=== PATIENT | female | born 1980 | race Caucasian/White ===

== ENCOUNTER 2020-01-23 12:28 | Emergency (ER) | payer BC, OTHER ==
[~2020-01-23] VITALS: Ht 170.2 cm; Wt 47.7 kg
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
--- NOTE | 2020-01-23 12:42 | NUR ---
THIERRY TRUJILLO AT BS NOW.
--- NOTE | 2020-01-23 13:00 | NUR ---
PT'S ANN MENDOZA CALLED. UPDATED HIM ON POC.
[2020-01-23 13:16] LABS: BASOPHILS # (AUTO) 0.02 x10^3/uL (0-0.1); BASOPHILS % (AUTO) 0 % (0-1); EOSINOPHILS # (AUTO) 0.01 x10^3/uL (0-0.4); EOSINOPHILS % (AUTO) 0 % (1-7); LYMPHOCYTES # (AUTO) 1.35 x10^3/uL (1-3.4); LYMPHOCYTES % (AUTO) 23 % (22-44); MD NO; MEAN CORPUSCULAR HEMOGLOBIN 29.8 pg (27.0-34.8); MEAN CORPUSCULAR HGB CONC 32.7 g/dL (32.4-35.8); MEAN CORPUSCULAR VOLUME 91.3 fL (80-100); MEAN PLATELET VOLUME 7.4 fL (7.4-10.4); MONOCYTES % (AUTO) 5 % (2-9); NEUTROPHILS # (AUTO) 4.22 x10^3/uL (1.8-6.8); NEUTROPHILS % (AUTO) 72 % (42-75); PLATELET COUNT 263 x10^3/uL (130-400); RED BLOOD COUNT 4.79 x10^6/uL (3.82-5.3); RED CELL DISTRIBUTION WIDTH 13.4 % (9.6-15.2)
[2020-01-23 13:29] LABS: ALANINE AMINOTRANSFERASE 14 U/L (12-78); ANION GAP 7 mmol/L (5-15); CALCIUM 9.2 mg/dL (8.5-10.1); CHLORIDE 108 mmol/L (98-107); CREATININE 0.96 mg/dL (0.55-1.02)
[2020-01-23] MEDS ORDERED: POTASSIUM CHLORIDE 20 MEQ TAB.ER.PRT ONE (13:32)
[2020-01-23 13:34] LABS: ALKALINE PHOSPHATASE 62 U/L (45-117); BILIRUBIN,TOTAL 0.3 mg/dL (0.2-1.0); TOTAL PROTEIN 7.5 g/dL (6.4-8.2)
[2020-01-23 13:37] LABS: MICROSCOPIC INDICATED
[2020-01-23 13:39] LABS: AMPHETAMINE SCREEN, URINE Negative (Negative); BARBITURATE SCREEN, URINE Negative (Negative); BENZODIAZEPINE SCREEN, URINE Negative (Negative); CANNABINOID SCREEN, URINE Positive (Negative); COCAINE SCREEN, URINE Negative (Negative); CULTURE INDICATED? NO; METHADONE SCREEN, URINE Negative (Negative); OPIATE SCREEN, URINE Negative (Negative)
--- NOTE | 2020-01-23 14:05 | NUR ---
PSYCH MOLDER INFLATED BALL WAS IN TO SPEAK WITH PT, RV'WD POC WITH PT.
--- NOTE | 2020-01-23 15:37 | NUR ---
PT HAS BEEN RESTING QUIETLY IN [facility], AWAKENS EASILY. VSS. RV'WD POC WITH HER, SHE VERBALIZES UNDERSTANDING.
--- NOTE | 2020-01-23 16:23 | NUR ---
UPDATED PT AND PT'S ANN (OVER THE PHONE) ON POC.
--- NOTE | 2020-01-23 17:55 | NUR ---
SNACK AND WATER PROVIDED TO PT. PHONE PROVIDED TO PT SO SHE CAN CALL HER KIDS.
--- NOTE | 2020-01-23 18:43 | NUR ---
PACKET FAXED TO [facility]
--- NOTE | 2020-01-23 19:08 | NUR ---
RV'WD PLAN FOR LIKELY TRANSFER TO [facility] WITH PT. PT ATE SOME DINNER. C/O SOME NAUSEA BUT DECLINES ANY MEDICATION, STATES, "I THINK I JUST NEED TO EAT. I HAVEN'T EATEN MUCH IN THREE DAYS." STATES SHE WILL MEDITATE THEN TRY TO GO TO SLEEP.
--- NOTE | 2020-01-23 22:16 | NUR ---
PT AWAKE, C/O DRY HEAVING. ICE WATER PROVIDED. VSS. PT DECLINES ZOFRAN. NO OTHER NEEDS AT THIS TIME.
--- NOTE | 2020-01-23 23:43 | NUR ---
PT ASLEEP IN [facility] AT THIS TIME; NADN. EQUAL BILATERAL RISE AND FALL OF CHEST OBSERVED FROM DOORWAY. SITTER OUTSIDE OF PT ROOM FOR DIRECT OBSERVATION OF PT.
--- NOTE | 2020-01-24 00:40 | NUR ---
pt asleep in [facility] at this time; nadn. sitter outside of pt room for direct observation of pt. equal bilateral rise and fall of chest noted.
--- NOTE | 2020-01-24 01:51 | NUR ---
PT ASLEEP IN [facility] AT THIS TIME; ERUM. PT HAS SITTER OUTSIDE OF PT ROOM FOR DIRECT OBSERVATION OF PT. EQUAL BILATERAL RISE AND FALL OF CHEST NOTED WHILE PT SLEEPS.
--- NOTE | 2020-01-24 03:16 | NUR ---
pt asleep in [facility] at this time; nadn. pt has sitter outside of pt room for direct observation of pt.equal bilateral rise and fall of pt chest noted.
--- NOTE | 2020-01-24 04:57 | NUR ---
pt asleep in [facility] at this time; nadn. sitter outside of pt room for direct observation of pt. equal bilateral rise and fall of chest noted.
--- NOTE | 2020-01-24 06:30 | NUR ---
pt vss and updated in emr. upon asking pt how she is feeling, she states that she had an episode of emesis and some dry heaving this morning. pt does not want meds at this time but requesting water. pt has sitter outside of room for direct observation at this time. When asked about pt suicidal ideation, pt states "I think its gone away, however, I'm still really sad and know I can't go home yet."
--- NOTE | 2020-01-24 07:40 | NUR ---
MORNING SHIFT REPORT RECEIVED. PT SLEEPING IN BED, NO DISTRESS. SITTER REMAINS AT BEDSIDE, ROOM REMAINS SECURED. MEAL TRAY ORDERED. CONT TO MONITOR.
--- NOTE | 2020-01-24 09:23 | NUR ---
PT RESTING IN BED, NO DISTRESS. SITTER REMAINS AT BEDISDE, ROOM REMAINS SECURED. AWAITING PSYCH TRANSFER. MEAL TRAY GIVEN TO PT. CONT TO MONITOR.
--- NOTE | 2020-01-24 10:15 | NUR ---
PT RESTING IN BED, NO DISTRESS. SITTER REMAINS AT BEDISDE, ROOM REMAINS SECURED. CONT TO MONITOR.
--- NOTE | 2020-01-24 11:15 | NUR ---
PT RESTING IN BED, ALERT AND ORIENTED X4, CALM AND COOPERATIVE. PT'S CALLED, PT STATED IT WAS OK TO GIVE HIM UPDATES ON PLAN OF CARE. PT MEAL TRAY ORDERED. PT'S ROOM REMAINS SECURED, SITTER REMAINS AT BEDSIDE. CONT TO MONITOR.
--- NOTE | 2020-01-24 12:27 | NUR ---
PT MOVED TO HOSPITAL BED. PT GIVEN MEAL TRAY. SITTER REMAINS AT BEDSIDE, ROOM SECURED. PT CALM AND COOPERATIVE. CONT TO MONITOR.
--- NOTE | 2020-01-24 13:03 | NUR ---
TIFFANY JACOB NP AT BEDSIDE FOR PT ASSESSMENT.
--- NOTE | 2020-01-24 13:18 | NUR ---
PT CALLING TO ASK FOR HEALTH INSURANCE INFORMATION. REPORT GIVEN TO YOMI ARELLANO.
--- NOTE | 2020-01-24 13:58 | NUR ---
pt able to get health insurance information from [facility]. this in given to registration. pt phone also removed from pt. explained to pt that all personal belongings are to be removed per psych protocol. pt okay with this. pt cell phone placed in tagged personal belongings bag. pt up to the bathroom steadily on feet. pt called demanding information on accepting facility. pt informed there has been no accepting psych facility at this time. pt furious, stating he will be calling every hour until a facility has accepted pt.
[2020-01-24 14:35] VITALS: BP 116/78
--- NOTE | 2020-01-24 14:40 | NUR ---
PT RESTING IN BED, VITALS DONE. NO STATED NEEDS AT THIS TIME. WILL CONTINUE TO MONITOR.
--- NOTE | 2020-01-24 15:02 | NUR ---
PT RESTING CALMY IN BED. NO STATED NEEDS. WILL CONTINUE TO MONITOR.
[2020-01-24] MEDS ORDERED: LORazepam 2 MG/ML, 1ML ONE (16:10)
--- NOTE | 2020-01-24 16:24 | NUR ---
PT RESTING IN BED AT THIS TIME, NO STATED NEEDS. SITTER AT DOOR.
--- NOTE | 2020-01-24 16:43 | NUR ---
report to Pee rn for behavioral health. PT UPDATED ON PLAN OF CARE
== END 2020-01-24 16:55 | disposition home or self-care (01) ==
LOC: ED 12:57
DX: T14.91XA Suicide attempt, initial encounter (principal); T39.1X1A Poisoning by 4-Aminophenol derivatives, accidental (unintentional), initial encounter; R94.31 Abnormal electrocardiogram [ECG] [EKG]; Y92.9 Unspecified place or not applicable
CPT/HCPCS: 36415; 80053; 80307; 81001; 84703; 85025; 93005; 99285

== ENCOUNTER 2020-01-24 16:18 | Inpatient (IN) | payer BC ==
[~2020-01-24] VITALS: Ht 170.2 cm; Wt 47.6 kg
[2020-01-24] MEDS ORDERED: POLYETHYLENE GLYCOL 17 GM PACKET PO PRN (17:00)
[2020-01-24] MEDS ORDERED: DOCUSATE 100 MG CAPSULE PO PRN (17:00)
[2020-01-24] MEDS ORDERED: ACETAMINOPHEN 325 MG TABLET PO PRN (17:00)
[2020-01-24 17:53] VITALS: BP 120/78
[2020-01-24 17:54] VITALS: BP 120/78
[2020-01-24 19:58] VITALS: BP 123/72
[2020-01-25 08:04] VITALS: BP 102/71
[2020-01-25 08:04] LABS: FREE T4 (FREE THYROXINE) 1.28 ng/dL (0.76-1.46); LDL/HDL RATIO 1.7 (0.5-3.0)
[2020-01-25 12:22] LABS: INTERNATIONAL NORMALIZED RATIO 1.07 (0.93-1.1); PROTHROMBIN TIME 11.3 Seconds (9.6-11.5)
[2020-01-25 12:25] LABS: ALANINE AMINOTRANSFERASE 13 U/L (12-78); ALBUMIN 4.2 g/dL (3.4-5.0); BILIRUBIN, DIRECT 0.2 mg/dL (0.1-0.2)
[2020-01-25 12:27] LABS: ALKALINE PHOSPHATASE 66 U/L (45-117); BILIRUBIN,INDIRECT 0.4 mg/dL (0.0-2.0); BILIRUBIN,TOTAL 0.6 mg/dL (0.2-1.0)
[2020-01-25] MEDS: FLUOXETINE 10 MG CAP PO SCH (15:59)
[2020-01-25 19:15] VITALS: BP 106/68
[2020-01-26 07:15] LABS: BASOPHILS # (AUTO) 0.02 x10^3/uL (0-0.1); BASOPHILS % (AUTO) 0 % (0-1); EOSINOPHILS # (AUTO) 0.02 x10^3/uL (0-0.4); EOSINOPHILS % (AUTO) 0 % (1-7); LYMPHOCYTES # (AUTO) 1.95 x10^3/uL (1-3.4); LYMPHOCYTES % (AUTO) 32 % (22-44); MD NO; MEAN CORPUSCULAR HEMOGLOBIN 29.8 pg (27.0-34.8); MEAN CORPUSCULAR HGB CONC 32.8 g/dL (32.4-35.8); MEAN CORPUSCULAR VOLUME 90.9 fL (80-100); MEAN PLATELET VOLUME 7.8 fL (7.4-10.4); MONOCYTES # (AUTO) 0.37 x10^3/uL (0.2-0.8); MONOCYTES % (AUTO) 6 % (2-9); NEUTROPHILS # (AUTO) 3.68 x10^3/uL (1.8-6.8); NEUTROPHILS % (AUTO) 61 % (42-75); PLATELET COUNT 267 x10^3/uL (130-400); RED BLOOD COUNT 5.68 x10^6/uL (3.82-5.3); RED CELL DISTRIBUTION WIDTH 12.9 % (9.6-15.2)
[2020-01-26 07:19] LABS: ALBUMIN 4.6 g/dL (3.4-5.0); ANION GAP 6 mmol/L (5-15); CALCIUM 9.3 mg/dL (8.5-10.1); CHLORIDE 104 mmol/L (98-107)
[2020-01-26 07:23] LABS: ALANINE AMINOTRANSFERASE 12 U/L (12-78); ALKALINE PHOSPHATASE 71 U/L (45-117); BILIRUBIN,TOTAL 0.7 mg/dL (0.2-1.0); CREATININE 0.93 mg/dL (0.55-1.02); TOTAL PROTEIN 8.8 g/dL (6.4-8.2)
[2020-01-26 07:30] LABS: INTERNATIONAL NORMALIZED RATIO 1.06 (0.93-1.1); PROTHROMBIN TIME 11.2 Seconds (9.6-11.5)
[2020-01-26 07:32] VITALS: BP 121/77
[2020-01-26] MEDS: FLUOXETINE 10 MG CAP PO SCH (08:50)
[2020-01-26 19:33] VITALS: BP 113/73
[2020-01-27 07:00] VITALS: BP 98/66
[2020-01-27] MEDS: FLUOXETINE 10 MG CAP PO SCH (08:47)
[2020-01-27] MEDS ORDERED: FLUO10CA14 PO (12:31)
[2020-01-27] MEDS ORDERED: HYDROXYZINE PAMOATE 25MG CAP PO PRN (14:00)
[2020-01-27] MEDS ORDERED: FLUOXETINE 10 MG CAP PO SCH (17:00)
[2020-01-27 19:59] VITALS: BP 109/70
[2020-01-28 07:39] VITALS: BP 104/71
== END 2020-01-28 13:00 | disposition home or self-care (01) | DRG 885 ==
LOC: 3E 16:58
PROVIDERS: ADMIT Psychiatry & Neurology Psychosomatic Medicine; ATTEND Psychiatry & Neurology Psychosomatic Medicine
DX: F33.2 Major depressive disorder, recurrent severe without psychotic features (principal); K59.00 Constipation, unspecified; F50.9 Eating disorder, unspecified; T39.1X2A Poisoning by 4-Aminophenol derivatives, intentional self-harm, initial encounter; Y92.89 Other specified places as the place of occurrence of the external cause; Z91.5 Personal history of self-harm; Z79.899 Other long term (current) drug therapy
CPT/HCPCS: 36415; 80053; 80061; 80076; 80307; 84439; 84443; 85025; 85610